=== PATIENT | male | born 2000 | race Caucasian/White ===

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

== ENCOUNTER 2020-05-30 21:59 | Emergency (ER) | payer MEDICAID, SELFPAY ==
[2020-05-30 22:03] VITALS: BP 115/57; PULSE 67; RESP 18; TEMP 37.2; O2SAT 100
--- NOTE | 2020-05-30 22:20 | W.ED.GENAD ---
Discharge Plan Disposition Patient Disposition: HOME Condition: Good Discharge Details Chief Complaint: Nausea/Vomit/Diar Clinical Impression: Vomiting, Gastroenteritis Primary Care Provider: Angelo Faye ED Provider: Mario De Leon Home Meds and New Rx's Prescriptions: New ondansetron HCl [Zofran] 4 mg tablet 4 mg PO Q8H Qty: 12 RF: 0 Discharge Instructions Instructions: Gastroenteritis (ED) Additional Instructions: At this time your signs and symptoms are consistent with gastroenteritis. This usually passes after about 24 to 48 hours. Please drink plenty of fluids, take small sips frequently. You have been significantly rehydrated here through the IV. Take the Zofran as needed to help with nausea. Avoid any solid foods, greasy foods or spicy foods for the next 2 to 3 days. Gradually advance your diet with Jell-O, pudding, and soups. If you notice any worsening of your symptoms, or any new symptoms such as vomiting, diarrhea, fever, chills, shortness of breath, chest pain, numbness, weakness, or fainting , please return immediately to the emergency department for reevaluation. Please follow up with your primary care provider as soon as possible for reassessment and reevaluation. As always, it was a pleasure participating in your medical care today. Referrals: Angelo Faye [Primary Care Provider] - Medical Decision Making 19-year-old male with no significant past medical history except for questionable irritable bowel syndrome who presents today for evaluation of nausea vomiting mild diarrhea. The patient states that for the last 12 to 18 hours he has had multiple episodes of vomiting and nausea, he denies any significant abdominal pain. He also admits to loose watery stools. He denies any blood in the vomit or the diarrhea. He denies any recent foreign travel, antibiotic use, or drinking from streams lakes or ponds. He denies any new medications. He denies any other sick contacts. He does feel that the symptoms often come on with greasy foods or meals, which he feels he has had some of recently. He does have a history of previous appendicitis which was nonsurgically managed. He states that this feels notably different than that. No other complaints at this time. He denies any significant marijuana use. Physical exam demonstrates a notably nonsurgical abdomen. No guarding or rebound whatsoever. Signs and symptoms clinically inconsistent with acute appendicitis. Did discuss risks and benefits of imaging, patient would like to hold off on any additional imaging at this time. At this time signs and symptoms are clinically consistent with mild gastroenteritis, potential irritable bowel syndrome. Will give Zofran, Bentyl, rehydrate, evaluate for significant electrolyte abnormality and reassess. 11:15 PM On reassessment the patient is doing much better. He feels well, does have some very mild persistent nausea. He has tolerated a p.o. trial with both water and crackers well and has had no vomiting. She received a liter of normal saline and vital signs are notably stable. Repeat exam shows no clinical evidence of acute appendicitis or surgical abdomen clinically at this time. Laboratory work-up shows mild white count which is likely reactive leukocytosis, hemoglobin is 10.9 and MCV is 92, he continues to deny any hematochezia melena or hematemesis. Likely component of chronic anemia, he does state that he has a family history of iron deficiency, but at this time to his labs he does not show evidence of severe iron deficiency anemia. His electrolytes are otherwise notably stable. He shows no evidence of fever severe systemic sepsis. Bicarb level normal, anion gap minimally elevated. No signs of significant acidosis clinically. Lipase stable. At this time with the patient's excellent p.o. tolerance, he has good rehydration, I do feel that he is stable for discharge but does require close follow-up. It does not sound like he currently has a family doctor anymore, I offered to the patient to contact her case management to set up a new PCP, however the patient has refused and states that he would like to go through his mother and have her set up a new family doctor. I offered to give his mother call, but at this time he states that he is uncertain of her phone number and she does not need to call at this time. Also of note the patient's stepmother is in the medical records the person of contact over the patient would like to not have her contacted at this time. HPI General Date/Time Provider Initiated Documentation: 05/30/20 22:02. HPI Narrative: 19-year-old male with no significant past medical history except for questionable irritable bowel syndrome who presents today for evaluation of nausea vomiting mild diarrhea. The patient states that for the last 12 to 18 hours he has had multiple episodes of vomiting and nausea, he denies any significant abdominal pain. He also admits to loose watery stools. He denies any blood in the vomit or the diarrhea. He denies any recent foreign travel, antibiotic use, or drinking from streams lakes or ponds. He denies any new medications. He denies any other sick contacts. He does feel that the symptoms often come on with greasy foods or meals, which he feels he has had some of recently. He does have a history of previous appendicitis which was nonsurgically managed. He states that this feels notably different than that. No other complaints at this time. He denies any significant marijuana use. Related Data Home Medications Medication Instructions Recorded Confirmed ondansetron HCl [Zofran] 4 mg PO Q8H #12 tab 05/30/20 Previous Rx's Medication Instructions Recorded ondansetron HCl [Zofran] 4 mg PO Q8H #12 tab 05/30/20 Allergies Allergy/AdvReac Type Severity Reaction Status Date / Time No Known Drug Allergies Allergy Unverified 05/30/20 22:09 General Stated Complaint: Nausea/Vomit/Diar ROSE: 3 Review of Systems All systems reviewed & are unremarkable except as noted in HPI and below PFSH Social History Smoking/Tobacco Use Status: Never Alcohol Intake: current Alcohol Intake frequency: a few times a month Alcohol type: beer Drug use: Occasionally Substance use type: marijuana Do you feel safe at home: Yes Do you feel safe in your relationship?: Yes Exam Narrative Exam Narrative: 1.Const: Well-nourished, Well-developed, appearing stated age 2.Eyes: PERRL, no conjunctival injection, and symmetrical lids. 3.ENT: Atraumatic external nose and ears. Moist MM. Neck: Symmetric, trachea midline, No thyromegaly. 4.CVS: +S1/S2, No murmurs or gallops. Peripheral pulses 2+ and equal in all extremities. Brisk capillary refill in all extremities. 5.RESP: Unlabored respiratory effort. Clear to auscultation bilaterally. No wheezes rales or rhonchi 6.GI: Soft, Nontender/Nondistended, No hepatosplenomegaly. No guarding or rebound. No pain at McBurney's point, negative Lee sign, negative heel strike test, negative obturator and psoas signs. 7.MSK: Normocephalic/Atraumatic, Extremities w/o deformity or ttp No cyanosis or clubbing, Normal movement of all extremities 8.Skin: Warm, Dry. No rashes or lesions. 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 Sensation grossly intact, no focal neurologic deficits. 10.Psych: (AAO) x3. Appropriate mood and affect Course Vital Signs Vital signs: Vital Signs Temperature 37.2 C 05/30/20 22:03 Pulse 67 05/30/20 22:03 Respiratory Rate 18 05/30/20 22:03 Blood Pressure 115/57 L 05/30/20 22:03 Pulse Oximetry 100 05/30/20 22:03 Temperature 37.2 C 05/30/20 22:03 Temperature Source Tympanic 05/30/20 22:03 Pulse 67 05/30/20 22:03 Respiratory Rate 18 05/30/20 22:03 Respiratory Effort 05/30/20 22:10 Blood Pressure 115/57 L 05/30/20 22:03 Pulse Oximetry 100 05/30/20 22:03 Oxygen Delivery Method Room Air 05/30/20 22:03 Oxygen Flow Rate 0 05/30/20 22:03 Pain Level 5 05/30/20 22:03
[2020-05-30 22:35] LABS: Abs Immature Grans 0.05 10^3/uL (0.0-0.06); Absolute Monocyte Count 0.33 10^3/uL (0.1-0.8); Basophils % 0.1; HCT 31.8 % (40.0-50.0); HGB 10.9 g/dL (13.5-17.5); Immature Grans % 0.3; MCH 31.7 pg (27.0-33.0); MCHC 34.3 % (32.0-36.0); MCV 92.4 fL (80-95); MPV 10.7 fL (8.0-11.0); Monocytes % 2.2; Neutrophils % 91.4; Platelet Count 336 10^3/uL (130-400); RBC 3.44 10^6/uL (4.36-5.78); RDW 12.9 % (11.8-14.1); RDW-SD 44.1 fL; WBC 14.93 10^3/uL (4.4-10.8)
[2020-05-30] MEDS: Normal Saline 1,000 ML 1000 ML IV (22:35)
[2020-05-30] MEDS: Ondansetron 4 MG/2 ML VIAL IVP (22:35)
[2020-05-30] MEDS: Dicyclomine 20 MG TAB PO (22:35)
[2020-05-30 22:40] LABS: Absolute Basophil Count 0.01 10^3/uL (0.0-0.2); Absolute Neutrophil Count 13.65 10^3/uL (1.2-6.7)
[2020-05-30 22:56] LABS: ALT 26 U/L (16-63); AST 20 U/L (15-37); Albumin 4.6 g/dL (3.4-5.0); Alkaline Phosphatase 63 U/L (46-116); Anion Gap 15.9 mmol/L (3-11); BUN 17 mg/dL (7-18); Bilirubin, Total 0.7 mg/dL (0.2-1.0); CO2 23.1 mmol/L (21.0-32.0); CREATININE 0.98 mg/dL (0.70-1.30); Calcium 9.1 mg/dL (8.5-10.1); Chloride 104 mmol/L (98-107); Glucose 127 mg/dL (74-106); Lipase 42 U/L (73-393); Potassium 3.4 mmol/L (3.5-5.1); Sodium 143 mmol/L (136-145); Total Protein 7.4 g/dL (6.4-8.2)
[2020-05-30 23:19] VITALS: BP 106/61; PULSE 56; RESP 16; O2SAT 100
== END 2020-05-30 23:25 | disposition home or self-care (01) ==
PROVIDERS: Emergency Provider Student in an Organized Health Care Education/Training Program; PCP Pediatrics
DX: R11.2 Nausea with vomiting, unspecified (principal); K52.9 Noninfective gastroenteritis and colitis, unspecified
CPT/HCPCS: 36415; 80053; 83690; 96361; 96374; 99284; 85025; J2405